=== PATIENT | male | born 1945 | race Caucasian/White ===

== ENCOUNTER 2017-06-07 23:42 | Emergency (ER) | payer MEDICARE, OTHER ==
[~2017-06-07 23:42] MED LIST: ALL DAY ALLERGY10 M3 PO; AMIODARONE HCL200 MG PO; CRESTOR10 MG PO; KLONOPIN0.5 MG PO; LOPRESSOR25 MG PO; NEURONTIN100 MG PO; XARELTO20 MG PO; ZESTRIL5 MG PO; ZOLOFT100 MG PO
[2017-06-08 00:53] LABS: BASOPHIL 0.1 % (0-2); EOSINOPHIL 0.2 % (0-7); HCT 38.3 % (42.0-52.0); HGB 12.8 g/dl (13.2-18.0); LYMPHOCYTE 4.1 % (15-48); MCH 32.9 pg (25.0-31.0); MCHC 33.4 g/dL (32.0-36.0); MCV 98.5 fL (78.0-100.0); MONOCYTE 8.4 % (0-12); MPV 10.5 fL (6.0-9.5); NEUTROPHIL 87.2 % (41-80); PLT 95 K/uL (150-400); RBC 3.89 M/uL (4.70-6.00); RDW 14.4 % (11.5-14.0); WBC 13.3 K/uL (4.0-10.5)
[2017-06-08 01:14] LABS: BILIRUBIN - TOTAL 1.2 mg/dL (0.1-1.0); CREATININE 1.1 mg/dL (0.7-1.2); GLOBULIN (CALCULATION) 3.1 g/dL (2.2-4.2); POTASSIUM 3.9 mmol/L (3.5-5.1); TOTAL PROTEIN 7.1 g/dL (6.4-8.3)
[2017-06-08 01:37] LABS: BILIRUBIN NEGATIVE (NEGATIVE); BLOOD 2+ Ery/uL (NEGATIVE); CLARITY CLEAR (CLEAR); COLOR YELLOW (YELLOW); GLUCOSE (U) NORMAL (NORMAL); KETONE (U) NEGATIVE (NEGATIVE); LEUKOCYTES TRACE Leu/uL (NEGATIVE); NITRITE NEGATIVE (NEGATIVE); PROTEIN NEGATIVE (NEGATIVE); SPECIFIC GRAVITY 1.015 (1.001-1.030); pH 6.5 (5.0-9.0)
[2017-06-08 01:42] LABS: BACTERIA TRACE
== END 2017-06-08 02:07 | disposition home or self-care (01) ==
LOC: FER 23:42
PROVIDERS: Emergency Medicine
DX: N39.0 Urinary tract infection, site not specified (principal); I10 Essential (primary) hypertension; I48.91 Unspecified atrial fibrillation; Z79.01 Long term (current) use of anticoagulants; Z79.899 Other long term (current) drug therapy; Z95.0 Presence of cardiac pacemaker; Z88.8 Allergy status to other drugs, medicaments and biological substances
CPT/HCPCS: 36415; 71020; 80053; 81001; 85025; 87076; 87088; 87186; 99283

== ENCOUNTER 2021-03-02 12:23 | Emergency (ER) | payer MEDICARE, OTHER ==
[~2021-03-02 12:23] MED LIST changes: +ANTIVERT25 MG PO; +FOLIC ACID1 MG PO; +NORVASC2.5 MG PO; +PROSCAR5 MG PO; +VITAMIN D35000 UNI1 PO; +ZYRTEC10 M3 PO
[2021-03-02 13:03] LABS: BASOPHIL 0.5 % (0-2); EOSINOPHIL 1.3 % (0-7); HCT 36.8 % (42.0-52.0); HGB 12.1 g/dl (13.2-18.0); LYMPHOCYTE 7.7 % (15-48); MCH 33.5 pg (25.0-31.0); MCHC 32.9 g/dL (32.0-36.0); MCV 101.9 fL (78.0-100.0); MONOCYTE 9.8 % (0-12); MPV 11.2 fL (6.0-9.5); NEUTROPHIL 80.1 % (41-80); NRBC 0; PLT 121 K/uL (150-400); RBC 3.61 M/uL (4.70-6.00); RDW 14.2 % (11.5-14.0); WBC 8.3 K/uL (4.0-10.5)
[2021-03-02 13:42] LABS: ALBUMIN 3.9 g/dL (3.4-5.0); CREATININE 1.03 mg/dL (0.67-1.17); GLOBULIN (CALCULATION) 3.4 g/dL; POTASSIUM 4.3 mmol/L (3.5-5.1); TOTAL PROTEIN 7.3 g/dL (6.4-8.2)
[2021-03-02 13:45] LABS: PRO-BNP 2132 pg/mL (<450)
[2021-03-02] MEDS ORDERED: K-DUR20 MEQ PO (14:34)
[2021-03-02] MEDS ORDERED: LASIX20 MG PO (14:34)
== END 2021-03-02 14:55 | disposition home or self-care (01) ==
LOC: FER 12:23
PROVIDERS: Emergency Medicine
DX: I50.9 Heart failure, unspecified (principal); I48.91 Unspecified atrial fibrillation; Z95.0 Presence of cardiac pacemaker
CPT/HCPCS: 36415; 71045; 80053; 83605; 83880; 84145; 84484; 85025; 87040; 93005; J1940

== ENCOUNTER 2021-06-19 19:29 | Inpatient (IN) | payer MEDICARE, OTHER ==
[~2021-06-19] VITALS: Ht 185.4 cm; Wt 93.9 kg
[~2021-06-19 19:29] MED LIST changes: +K-DUR20 MEQ PO; +LASIX20 MG PO
[2021-06-19 20:58] LABS: BASOPHIL 0.2 % (0-2); EOSINOPHIL 0.5 % (0-7); HCT 43.2 % (42.0-52.0); HGB 14.2 g/dl (13.2-18.0); LYMPHOCYTE 4.7 % (15-48); MCH 33.2 pg (25.0-31.0); MCHC 32.9 g/dL (32.0-36.0); MCV 100.9 fL (78.0-100.0); MONOCYTE 8.3 % (0-12); MPV 11.1 fL (6.0-9.5); NEUTROPHIL 85.9 % (41-80); NRBC 0; PLT 135 K/uL (150-400); RBC 4.28 M/uL (4.70-6.00); RDW 13.9 % (11.5-14.0); WBC 12.3 K/uL (4.0-10.5)
[2021-06-19 21:25] LABS: BILIRUBIN - TOTAL 1.3 mg/dL (0.2-1.0); BUN/CREAT RATIO (CALC) 28.2 RATIO; CREATININE 0.85 mg/dL (0.67-1.17); GLOBULIN (CALCULATION) 4.1 g/dL; POTASSIUM 4.1 mmol/L (3.5-5.1); TOTAL PROTEIN 8.1 g/dL (6.4-8.2)
[2021-06-19 21:37] LABS: LACTIC ACID 1.2 mmol/L (0.4-1.9)
[2021-06-20] MEDS ORDERED: ELIQUIS5 MG PO (00:06)
[2021-06-20] MEDS ORDERED: SYNTHROID50 MCG PO (00:08)
[2021-06-20] MEDS ORDERED: EXELON 9.5MG9.5 MG EXT (00:09)
[2021-06-20] MEDS ORDERED: K-TAB ER20 MEQ PO (00:16)
[2021-06-20] MEDS ORDERED: LASIX20 MG PO (00:18)
[2021-06-20 02:43] LABS: BILIRUBIN NEGATIVE (NEGATIVE); BLOOD TRACE-INTACT Ery/uL (NEGATIVE); CLARITY CLEAR (CLEAR); COLOR YELLOW (YELLOW); GLUCOSE (U) NORMAL (NORMAL); LEUKOCYTES NEGATIVE Leu/uL (NEGATIVE); NITRITE NEGATIVE (NEGATIVE); PROTEIN NEGATIVE (NEGATIVE); SPECIFIC GRAVITY >=1.030 (1.001-1.030)
[2021-06-20 02:55] LABS: URINARY RBC RARE
[2021-06-20 04:40] LABS: BASOPHIL 0.3 % (0-2); EOSINOPHIL 2.2 % (0-7); HGB 12.4 g/dl (13.2-18.0); LYMPHOCYTE 12.4 % (15-48); MCHC 32.6 g/dL (32.0-36.0); MCV 101.1 fL (78.0-100.0); MPV 10.7 fL (6.0-9.5); NEUTROPHIL 74.8 % (41-80); NRBC 0; PLT 108 K/uL (150-400); RBC 3.76 M/uL (4.70-6.00); RDW 13.9 % (11.5-14.0); WBC 6.7 K/uL (4.0-10.5)
[2021-06-20 05:10] LABS: ALBUMIN 3.3 g/dL (3.4-5.0); BILIRUBIN - TOTAL 1.4 mg/dL (0.2-1.0); BUN/CREAT RATIO (CALC) 27.4 RATIO; CREATININE 0.73 mg/dL (0.67-1.17); GLOBULIN (CALCULATION) 3.4 g/dL; TOTAL PROTEIN 6.7 g/dL (6.4-8.2)
[2021-06-21 06:41] LABS: BASOPHIL 0.3 % (0-2); EOSINOPHIL 0.9 % (0-7); HCT 39.6 % (42.0-52.0); MCH 32.7 pg (25.0-31.0); MCHC 32.8 g/dL (32.0-36.0); MCV 99.7 fL (78.0-100.0); MONOCYTE 9.1 % (0-12); MPV 10.8 fL (6.0-9.5); NEUTROPHIL 81.3 % (41-80); NRBC 0; PLT 111 K/uL (150-400); RBC 3.97 M/uL (4.70-6.00); RDW 13.7 % (11.5-14.0); WBC 7.5 K/uL (4.0-10.5)
[2021-06-21 07:39] LABS: ALBUMIN 3.4 g/dL (3.4-5.0); BILIRUBIN - TOTAL 2.4 mg/dL (0.2-1.0); BUN/CREAT RATIO (CALC) 18.8 RATIO; CREATININE 0.69 mg/dL (0.67-1.17); GLOBULIN (CALCULATION) 3.4 g/dL; POTASSIUM 3.5 mmol/L (3.5-5.1); TOTAL PROTEIN 6.8 g/dL (6.4-8.2)
[2021-06-22 06:21] LABS: BASOPHIL 0.3 % (0-2); EOSINOPHIL 0.6 % (0-7); HCT 42.9 % (42.0-52.0); HGB 13.7 g/dl (13.2-18.0); LYMPHOCYTE 5.8 % (15-48); MCH 33.1 pg (25.0-31.0); MCHC 31.9 g/dL (32.0-36.0); MCV 103.6 fL (78.0-100.0); MONOCYTE 9.9 % (0-12); MPV 10.8 fL (6.0-9.5); NEUTROPHIL 82.9 % (41-80); NRBC 0; PLT 131 K/uL (150-400); RBC 4.14 M/uL (4.70-6.00); RDW 14.1 % (11.5-14.0); WBC 10.9 K/uL (4.0-10.5)
[2021-06-22 06:39] LABS: ALBUMIN 3.6 g/dL (3.4-5.0); BILIRUBIN - TOTAL 2.9 mg/dL (0.2-1.0); BUN/CREAT RATIO (CALC) 14.5 RATIO; CREATININE 0.83 mg/dL (0.67-1.17); GLOBULIN (CALCULATION) 3.9 g/dL; POTASSIUM 3.9 mmol/L (3.5-5.1); TOTAL PROTEIN 7.5 g/dL (6.4-8.2)
== END 2021-06-22 14:16 | disposition home or self-care (01) | DRG 390 ==
LOC: FER 19:29 → FMS 22:33
PROVIDERS: Emergency Medicine Emergency Medical Services; Nurse Practitioner; ADMIT Family Medicine
DX: K56.51 Intestinal adhesions [bands], with partial obstruction (principal); K21.9 Gastro-esophageal reflux disease without esophagitis; I48.0 Paroxysmal atrial fibrillation; Z20.822 Contact with and (suspected) exposure to COVID-19; I10 Essential (primary) hypertension; D53.9 Nutritional anemia, unspecified; I25.10 Atherosclerotic heart disease of native coronary artery without angina pectoris; E78.5 Hyperlipidemia, unspecified; F41.9 Anxiety disorder, unspecified; D69.6 Thrombocytopenia, unspecified; Z95.0 Presence of cardiac pacemaker; Z90.49 Acquired absence of other specified parts of digestive tract; Z88.5 Allergy status to narcotic agent; Z88.7 Allergy status to serum and vaccine; Z91.013 Allergy to seafood; Z88.8 Allergy status to other drugs, medicaments and biological substances; Z79.01 Long term (current) use of anticoagulants; Z79.890 Hormone replacement therapy; Z79.899 Other long term (current) drug therapy; Z90.89 Acquired absence of other organs; Z98.890 Other specified postprocedural states; Z87.11 Personal history of peptic ulcer disease; Z82.49 Family history of ischemic heart disease and other diseases of the circulatory system; Z84.89 Family history of other specified conditions
CPT/HCPCS: 36415; 74018; 74022; 80053; 81001; 82607; 83605; 83690; 83735; 84145; 85025; 93005; 94010; 94760; 94762; C9113; J0360; J1170; J2405; J7030; J7120; U0002

== ENCOUNTER → 2021-09-16 | Day surgery (SDC) | payer MEDICARE, OTHER ==
[~2021-09-16] VITALS: Ht 185.4 cm; Wt 86.2 kg
[~2021-09-16] MED LIST changes: +ELIQUIS5 MG PO; +EXELON 9.5MG9.5 MG EXT; +IRON18 MG PO; +K-TAB ER20 MEQ PO; +SYNTHROID50 MCG PO; +VITAMIN E1000 UNI1 PO
[2021-09-16 10:16] LABS: HGB 14.4 g/dl (13.2-18.0); MCH 33.6 pg (25.0-31.0); MCHC 33.5 g/dL (32.0-36.0); MCV 100.5 fL (78.0-100.0); RBC 4.28 M/uL (4.70-6.00); RDW 13.8 % (11.5-14.0); WBC 7.8 K/uL (4.0-10.5)
[2021-09-16 10:30] LABS: ALBUMIN 4.3 g/dL (3.4-5.0); BILIRUBIN - TOTAL 1.3 mg/dL (0.2-1.0); BUN/CREAT RATIO (CALC) 17.2 RATIO; CREATININE 0.93 mg/dL (0.67-1.17); GLOBULIN (CALCULATION) 3.9 g/dL; POTASSIUM 3.6 mmol/L (3.5-5.1); TOTAL PROTEIN 8.2 g/dL (6.4-8.2)
== END | disposition home or self-care (01) ==
LOC: FAS 09:04
PROVIDERS: Surgery
DX: D12.3 Benign neoplasm of transverse colon (principal); K29.70 Gastritis, unspecified, without bleeding; K21.9 Gastro-esophageal reflux disease without esophagitis; K66.0 Peritoneal adhesions (postprocedural) (postinfection); K92.1 Melena; D50.0 Iron deficiency anemia secondary to blood loss (chronic); I10 Essential (primary) hypertension; E78.00 Pure hypercholesterolemia, unspecified; I48.91 Unspecified atrial fibrillation; Z88.5 Allergy status to narcotic agent; Z88.1 Allergy status to other antibiotic agents; Z91.013 Allergy to seafood; Z79.01 Long term (current) use of anticoagulants; Z79.899 Other long term (current) drug therapy
CPT/HCPCS: 36415; 80053; J1610; J7120

== ENCOUNTER 2022-05-21 13:38 | Inpatient (IN) | payer MEDICARE, OTHER ==
[~2022-05-21] VITALS: Ht 185.4 cm; Wt 85.1 kg
[2022-05-21 15:41] LABS: BASOPHIL 0.5 % (0-2); EOSINOPHIL 1.8 % (0-7); HCT 42.5 % (42.0-52.0); HGB 14.2 g/dl (13.2-18.0); LYMPHOCYTE 11.7 % (15-48); MCH 33.6 pg (25.0-31.0); MCHC 33.4 g/dL (32.0-36.0); MCV 100.5 fL (78.0-100.0); MONOCYTE 14.4 % (0-12); MPV 11.2 fL (6.0-9.5); NEUTROPHIL 71.3 % (41-80); NRBC 0; PLT 126 K/uL (150-400); RBC 4.23 M/uL (4.70-6.00); RDW 14.8 % (11.5-14.0)
[2022-05-21 15:46] LABS: INR 1.32 (0.9-1.2); PTT 34.9 SECONDS (24.9-34.6)
[2022-05-21 16:55] LABS: ALBUMIN 3.6 g/dL (3.4-5.0); BILIRUBIN - TOTAL 1.6 mg/dL (0.2-1.0); BUN/CREAT RATIO (CALC) 18.9 RATIO; CREATININE 0.95 mg/dL (0.67-1.17); POTASSIUM 4.3 mmol/L (3.5-5.1); TOTAL PROTEIN 7.6 g/dL (6.4-8.2)
[2022-05-21 17:18] LABS: BILIRUBIN NEGATIVE (NEGATIVE); BLOOD NEGATIVE Ery/uL (NEGATIVE); CLARITY CLEAR (CLEAR); COLOR YELLOW (YELLOW); GLUCOSE (U) NORMAL (NORMAL); LEUKOCYTES NEGATIVE Leu/uL (NEGATIVE); NITRITE NEGATIVE (NEGATIVE); PROTEIN NEGATIVE (NEGATIVE); SPECIFIC GRAVITY 1.015 (1.001-1.030)
[2022-05-21 17:24] LABS: INFLUENZA A NAA NEGATIVE (NEGATIVE)
[2022-05-21 17:26] LABS: CORONAVIRUS 2019 SARS-COV-2 POSITIVE (NEGATIVE)
[2022-05-21] MEDS ORDERED: FEOSOL325 MG PO (18:37)
[2022-05-22 06:35] LABS: BASOPHIL 0.5 % (0-2); EOSINOPHIL 1.8 % (0-7); HCT 39.9 % (42.0-52.0); LYMPHOCYTE 11.8 % (15-48); MCH 33.1 pg (25.0-31.0); MCHC 32.6 g/dL (32.0-36.0); MCV 101.5 fL (78.0-100.0); MONOCYTE 12.5 % (0-12); MPV 10.5 fL (6.0-9.5); NEUTROPHIL 72.7 % (41-80); NRBC 0; PLT 96 K/uL (150-400); RBC 3.93 M/uL (4.70-6.00); RDW 14.3 % (11.5-14.0)
[2022-05-22 06:53] LABS: CREATININE 0.9 mg/dL (0.67-1.17); POTASSIUM 4.1 mmol/L (3.5-5.1)
--- NOTE | 2022-05-23 15:35 | NUR ---
PT DISCHARGED HOME WITH ALL PERSONAL BELONGINGS. VERBALIZES UNDERSTANDING OF D/C INSTRUCTIONS. VSS AT TIME OF DISCHARGE.
== END 2022-05-23 15:34 | disposition home or self-care (01) | DRG 388 ==
LOC: FER 13:38 → FMS 17:15
PROVIDERS: Internal Medicine; ADMIT Allergy & Immunology Allergy
PROC: 8E0ZXY6 Isolation (ICD-10-PCS; principal; 2022-05-21)
DX: K56.600 Partial intestinal obstruction, unspecified as to cause (principal); U07.1 COVID-19; K59.39 Other megacolon; F03.90 Unspecified dementia, unspecified severity, without behavioral disturbance, psychotic disturbance, mood disturbance, and anxiety; I48.91 Unspecified atrial fibrillation; I25.10 Atherosclerotic heart disease of native coronary artery without angina pectoris; Z66 Do not resuscitate; J30.9 Allergic rhinitis, unspecified; E78.5 Hyperlipidemia, unspecified; I10 Essential (primary) hypertension; E03.9 Hypothyroidism, unspecified; F41.9 Anxiety disorder, unspecified; K59.00 Constipation, unspecified; D64.9 Anemia, unspecified; Z82.49 Family history of ischemic heart disease and other diseases of the circulatory system; Z88.5 Allergy status to narcotic agent; Z88.7 Allergy status to serum and vaccine; Z79.899 Other long term (current) drug therapy; Z90.49 Acquired absence of other specified parts of digestive tract; Z79.01 Long term (current) use of anticoagulants; Z95.0 Presence of cardiac pacemaker
CPT/HCPCS: 36415; 74018; 74019; 80048; 80053; 81003; 83605; 83690; 84484; 85025; 85610; 85730; 93005; J2405; J7120; U0002